=== PATIENT | male | born 1975 | race Caucasian/White ===

== ENCOUNTER 2016-02-19 10:20 | Emergency (ER) | payer BC ==
[2016-02-19 10:31] VITALS: BP 135/85
--- NOTE | 2016-02-19 10:31 | UC ---
Throat Pain/Nasal Abdulkadir HPI - HPI Summary HPI Summary: Sore throat for 6 days-fevers on/off - History of Current Complaint Chief Complaint: UCGeneralIllness Stated Complaint: THROAT PAIN Time Seen by Provider: 02/19/16 10:22 Hx Obtained From: Patient Onset/Duration: Sudden Onset, Lasting Days - 6, Still Present Severity: Moderate Pain Intensity: 5 Pain Scale Used: 0-10 Numeric Cough: None Associated Signs & Symptoms: Positive: Nasal Discharge, Fever - Allergies/Home Medications Allergies/Adverse Reactions: Allergies Allergy/AdvReac Type Severity Reaction Status Date / Time MARIJUANA Allergy See Comment Uncoded 02/19/16 10:29 Home Medications: Home Medications Throat [place] 02/19/16 [History] PMH/Surg Hx/FS Hx/Imm Hx Previously Healthy: Yes - Family History Known Family History: Positive: Cardiac Disease, Hypertension, Diabetes - Social History Occupation: Employed Full-time Lives: With Family Alcohol Use: Rare Substance Use Type: None Smoking Status (MU): Never Smoked Tobacco Review of Systems Constitutional: Fever, Chills, Fatigue Skin: Negative Eyes: Negative ENT: Sore Throat, Nasal Discharge Respiratory: Negative Cardiovascular: Negative Gastrointestinal: Negative Genitourinary: Negative Motor: Negative Neurovascular: Negative Musculoskeletal: Negative Neurological: Negative Psychological: Negative All Other Systems Reviewed And Are Negative: Yes Physical Exam Triage Information Reviewed: Yes Appearance: Well-Nourished, Ill-Appearing - mild, Pain Distress - mild Vital Signs Reviewed: Yes Eye Exam: Normal Eyes: Positive: Conjunctiva Clear ENT Exam: Normal ENT: Positive: Normal ENT inspection, Hearing grossly normal, Pharyngeal erythema, Nasal drainage, TMs normal. Negative: Nasal congestion, Trismus, Muffled/hoarse voice Dental Exam: Normal Neck: Positive: Supple - cervical nodes, Tenderness @, Enlarged Nodes @ - anterior cervical Respiratory Exam: Normal Respiratory: Positive: Chest non-tender, Lungs clear, Normal breath sounds, No respiratory distress, No accessory muscle use Cardiovascular Exam: Normal Cardiovascular: Positive: RRR, No Murmur, Pulses Normal, Brisk Capillary Refill Musculoskeletal Exam: Normal Musculoskeletal: Positive: Strength Intact, ROM Intact, No Edema Neurological Exam: Normal Neurological: Positive: Alert, Muscle Tone Normal Psychological Exam: Normal Skin Exam: Normal Throat Pain/Nasal Course/Dx - Course Assessment/Plan: Amoxicillin, increase fluids, otc pain relievers, follow with PCP re-check prn - Differential Dx/Diagnosis Differential Diagnosis/HQI/PQRI: Laryngitis, Peritonsillar Abscess, Pharyngitis , Tonsillitis Provider Diagnoses: Tonsillitis Discharge - Discharge Plan Condition: Stable Disposition: HOME Prescriptions: Amoxicillin CAP* 500 mg PO TID #30 cap Patient Education Materials: Acetaminophen (By mouth), Ibuprofen (By mouth), Tonsillitis (ED) Referrals: [facility] [[place]] - If Needed Dayne Peña MD [Medical Doctor] - If Needed
== END 2016-02-19 10:36 | disposition home or self-care (01) ==
LOC: UCEAST 10:20
DX: J03.90 Acute tonsillitis, unspecified (principal)
CPT/HCPCS: 99212; G0463

== ENCOUNTER 2017-03-18 03:06 | Observation (INO) | payer BC ==
[2017-03-18] MEDS ORDERED: Ondansetron INJ* 2 MG/ML VIAL IV ONE (03:55)
[2017-03-18] MEDS ORDERED: Morphine INJ* 4 MG/ML 1 ML CARPUJECT IV ONE (03:55)
[2017-03-18] MEDS ORDERED: NS 0.9% 1000 ML* 1,000 ML IV ONE (03:55)
[2017-03-18 04:32] LABS: ABS Basophils 0 10^3/ul (0-0.2); ABS Eosinophils 0 10^3/ul (0-0.6); ABS Lymphocytes 1.8 10^3/ul (1.0-4.8); ABS Monocytes 0.5 10^3/ul (0-0.8); ABS Neutrophils 13.5 10^3/ul (1.5-7.7); ABS Nucleated RBC 0 10^3/ul; Eosinophil % 0.1 % (0-6); Hematocrit 43 % (42-52); Hemoglobin 14.7 g/dl (14.0-18.0); Lymphocyte % 11.1 % (25-47); Mean Corpuscular HGB Conc 34 g/dl (31-36); Mean Corpuscular Hemoglobin 30 pg (27-31); Mean Corpuscular Volume 89 fL (80-94); Mean Platelet Volume 7 um3 (7.4-10.4); Nucleated Red Blood Cells % 0.1; Platelet Count 294 10^3/ul (150-450); Red Blood Count 4.81 10^6/ul (4.0-5.4); Red Cell Distribution Width 13 % (10.5-15); White Blood Count 15.9 10^3/ul (3.5-10.8)
[2017-03-18 04:48] LABS: EGFR Non-African American 82.3 (>60)
[2017-03-18 04:52] LABS: INR 0.93 (0.77-1.02)
[2017-03-18] MEDS ORDERED: Iohexol 300* (CONTRAST) 10 ML SDV IV ONE (06:19)
--- NOTE | 2017-03-18 06:45 | ED ---
Coby Baca Thomas, scribed for Milo Mckenzie on 03/18/17 at 0400 . Abdominal Pain/Male - HPI Summary HPI Summary: The patient is a 41 year old male presenting with mid and upper abdominal pain that began yesterday morning. He rates the pain 6/10. The patient additionally complains of nausea and vomiting. He denies diarrhea, chest pain, and shortness of breath. Past medical history includes IBS. - History of Current Complaint Chief Complaint: EDAbdPain Stated Complaint: ABD PAIN Time Seen by Provider: 03/18/17 03:45 Hx Obtained From: Patient Onset/Duration: Lasting Days - 1, Still Present Timing: Constant Severity Currently: Moderate Pain Intensity: 6 Pain Scale Used: 0-10 Numeric Location: Other - Mid, upper Aggravating Factor(s): Nothing Alleviating Factor(s): Nothing Associated Signs And Symptoms: Positive: Nausea, Vomiting. Negative: Diarrhea, Other - CP, SOB - Allergies/Home Medications Allergies/Adverse Reactions: Allergies Allergy/AdvReac Type Severity Reaction Status Date / Time MARIJUANA Allergy See Comment Uncoded 02/19/16 10:29 PMH/Surg Hx/FS Hx/Imm Hx Cardiovascular History: Denies: Hx Myocardial Infarction GI History: Reports: Hx Irritable Bowel - Surgical History Surgery Procedure, Year, and Place: R ARM. FATTY CYST REMOVED FROM BACK Infectious Disease History: No Infectious Disease History: Denies: Traveled Outside the [place] in Last 30 Days - Family History Known Family History: Positive: Cardiac Disease, Hypertension, Diabetes - Social History Alcohol Use: Rare Substance Use Type: Reports: None Smoking Status (MU): Never Smoked Tobacco Review of Systems Negative: Fever Negative: Chest Pain Negative: Shortness Of Breath Positive: Abdominal Pain, Vomiting, Nausea. Negative: Diarrhea All Other Systems Reviewed And Are Negative: Yes Physical Exam - Summary Physical Exam Summary: Appearance: Well appearing, no pain distress Skin: warm, dry, reflects adequate perfusion Head/face: normal Eyes: EOMI, SALOME ENT: normal Neck: supple, non-tender Respiratory: CTA, breath sounds present Cardiovascular: RRR, pulses symmetrical Abdomen: Soft. He is tender to his RUQ and umbilical area. Bowel: present Musculoskeletal: normal, strength/ROM intact Neuro: normal, sensory motor intact, A&Ox3 Triage Information Reviewed: Yes Vital Signs On Initial Exam: Initial Vitals Temp Pulse Resp BP Pulse Ox 97 F 75 16 155/101 97 03/18/17 03:09 03/18/17 03:09 03/18/17 03:09 03/18/17 03:09 03/18/17 03:09 Vital Signs Reviewed: Yes Diagnostics - Vital Signs Vital Signs Temp Pulse Resp BP Pulse Ox 03/18/17 03:09 97 F 75 16 155/101 97 - Laboratory Lab Results: Lab Results 03/18/17 03/18/17 03/18/17 Range/Units 04:17 04:17 04:17 WBC 15.9 H (3.5-10.8) 10^3/ul RBC 4.81 (4.0-5.4) 10^6/ul Hgb 14.7 (14.0-18.0) g/dl Hct 43 (42-52) % MCV 89 (80-94) fL MCH 30 (27-31) pg MCHC 34 (31-36) g/dl RDW 13 (10.5-15) % Plt Count 294 (150-450) 10^3/ul MPV 7 L (7.4-10.4) um3 Neut % (Auto) 85.3 H (38-83) % Lymph % (Auto) 11.1 L (25-47) % Edmonson % (Auto) 3.3 (1-9) % Eos % (Auto) 0.1 (0-6) % Baso % (Auto) 0.2 (0-2) % Absolute Neuts (auto) 13.5 H (1.5-7.7) 10^3/ul Absolute Lymphs (auto) 1.8 (1.0-4.8) 10^3/ul Absolute Monos (auto) 0.5 (0-0.8) 10^3/ul Absolute Eos (auto) 0 (0-0.6) 10^3/ul Absolute Basos (auto) 0 (0-0.2) 10^3/ul Absolute Nucleated RBC 0 10^3/ul Nucleated RBC % 0.1 INR (Anticoag Therapy) 0.93 (0.77-1.02) APTT 30.7 (26.0-36.3) seconds Sodium 133 (133-145) mmol/L Potassium 4.0 (3.5-5.0) mmol/L Chloride 104 (101-111) mmol/L Carbon Dioxide 19 L (22-32) mmol/L Anion Gap 10 (2-11) mmol/L BUN 23 (6-24) mg/dL Creatinine 1.00 (0.67-1.17) mg/dL Est GFR ( Amer) 105.9 (>60) Est GFR (Non-Af Amer) 82.3 (>60) BUN/Creatinine Ratio 23.0 H (8-20) Glucose 154 H (70-100) mg/dL Calcium 9.0 (8.6-10.3) mg/dL Total Bilirubin 0.70 (0.2-1.0) mg/dL AST 18 (13-39) U/L ALT 27 (7-52) U/L Alkaline Phosphatase 55 (34-104) U/L Troponin I 0.00 (<0.04) ng/mL Total Protein 7.7 (6.4-8.9) g/dL Albumin 4.4 (3.2-5.2) g/dL Globulin 3.3 (2-4) g/dL Albumin/Globulin Ratio 1.3 (1-3) Lipase 14 (11.0-82.0) U/L Result Diagrams: 03/18/17 04:17 03/18/17 04:17 Lab Statement: Any lab studies that have been ordered have been reviewed, and results considered in the medical decision making process. - CT CT Abd/Pel CT Interpretation Completed By: Radiologist - PENDING--SEE [facility] - EKG 04:11 Cardiac Rate: NL EKG Rhythm: Sinus Rhythm - at 69 BPM EKG Interpretation: No acute changes. Abdominal Pain Fem Course/Dx - Course Assessment/Plan: The patient is a 41 year old male presenting with mid and upper abdominal pain that began yesterday morning. In the ED course the patient was given IV fluids, morphine, and Zofran. Bloodwork and urinalysis were obtained. CT Abd/Pel is pending. EKG shows sinus rhythm. The patient is diagnosed with abdominal pain. The patient will be signed out to Dr. Gonzalez pending CT Abd/Pel. - Diagnoses Differential Diagnosis/HQI/PQRI: Appendicitis, Diverticulitis, Pancreatitis, Renal Colic, Urinary Tract Infection Provider Diagnoses: Abdominal pain Discharge - Discharge Plan Condition: Stable Disposition: OTHER Discharge Disposition Comment: Signed out to Dr. Gonzalez pending CT Abd/Pel Referrals: No Primary Care Phys,NOPCP [Primary Care Provider] - The documentation as recorded by the Coby de la cruz Thomas accurately reflects the service I personally performed and the decisions made by , Milo Mckenzie.
[2017-03-18 08:28] LABS: Urine Appearance Clear; Urine Blood Negative (Negative); Urine Color Yellow; Urine Ketones Negative (Negative); Urine Protein Negative (Negative); Urine Urobilinogen Negative (Negative)
--- NOTE | 2017-03-18 08:48 | RAD ---
CLINICAL HISTORY: Tender umbilicus, rule out appendicitis COMPARISON: None TECHNIQUE: Multiple contiguous axial CT scans were obtained of the abdomen and pelvis after the administration of intravenous contrast. Coronal and sagittal multiplanar reformations are submitted for review. Oral contrast was administered. Delayed images were obtained through the abdomen and pelvis. FINDINGS: LUNG BASES: There is minimal linear atelectasis of the right lung base. LIVER: The liver is diffusely low in attenuation compared to the spleen. There are no focal hepatic parenchymal masses. BILE DUCTS: There is no intrahepatic or extrahepatic biliary dilatation. GALLBLADDER: Multiple gallstones are noted. There is mild stranding of the pericholecystic fat is seen on axial image 39 and coronal image 58.. PANCREAS: The pancreas is normal, without mass or ductal dilatation. SPLEEN: Normal in size and appearance. UPPER GI TRACT: Evaluation of the gastrointestinal tract is limited by incomplete gastric distention. The upper GI tract is unremarkable. SMALL BOWEL AND MESENTERY: The small bowel is normal in contour, course, and caliber. There is no obstruction or dilatation. COLON: There are multiple diverticula of the sigmoid colon. There is a tubular, vermiform, hollow viscus that is blind-ending and originates from the cecum consistent with the appendix. This is dilated up to 1.1 cm in caliber. There is mild stranding of adjacent fat with a small amount of fluid along the mesoappendix. There is no loculated fluid collection to suggest abscess.. ADRENALS: Normal bilaterally. KIDNEYS: The kidneys are normal in shape, size, contour, and axis. There is no hydronephrosis or nephrolithiasis. BLADDER: The bladder is smooth in contour. PELVIC ORGANS: The prostate gland is normal. The seminal vesicles are symmetric. AORTA: The aorta is normal. IVC: Unremarkable LYMPH NODES: There is no lymphadenopathy by size criteria. ABDOMINAL WALL: There is a small fat-containing umbilical hernia. BONES AND SOFT TISSUES: There are mild diffuse degenerative changes. OTHER: None IMPRESSION: 1. DILATED APPENDIX WITH PERIAPPENDICEAL INFLAMMATORY CHANGE CONSISTENT WITH ACUTE APPENDICITIS IN THE CORRECT CLINICAL SETTING. THERE IS NO LOCULATED FLUID COLLECTION TO SUGGEST ABSCESS. 2. CHOLELITHIASIS WITH MILD PERICOLONIC INFLAMMATORY CHANGE. THIS IS OF UNCLEAR CLINICAL SIGNIFICANCE IN THE ABSENCE OF SYMPTOMS OF ACUTE CHOLECYSTITIS. 3. DIVERTICULOSIS. 4. FATTY INFILTRATION OF THE LIVER
[2017-03-18] MEDS ORDERED: Ondansetron INJ* 2 MG/ML VIAL IV PRN (09:02)
[2017-03-18] MEDS ORDERED: HYDROmorphone INJ* 1 MG/ML CARPUJECT SYRINGE IV PRN (09:02)
[2017-03-18] MEDS ORDERED: Famotidine IV* 10 MG/ML 2 ML (20 mg) IV SLOW PU ONE (09:06)
[2017-03-18] MEDS ORDERED: NS 0.9% 1000 ML* 1,000 ML IV SCH (09:15)
[2017-03-18] MEDS ORDERED: Piperacillin/Tazobactam VIAL*) 3.375 GM in NS 0.9% 100 ML* 100 ML IVPB SCH (10:00)
--- NOTE | 2017-03-18 10:01 | HP ---
AMENDED REPORT NOW INCLUDES COSIGNER DESIGNATION - ESIGNED BEFORE ADJUSTMENT DATE OF ADMISSION: 03/18/17 PATIENT OF: Dr. Neptali Alicea * (dictated by GERSON Pederson) CHIEF COMPLAINT: Upper abdominal pain. HISTORY OF PRESENT ILLNESS: Mr. 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 The patient notes that his pain started around midnight on Saturday after he had a greasy fatty dinner consisting of fried chicken. The pain started around his epigastric area and occasionally radiating to his right upper quadrant. He had some indigestion for which he took some Tums and Gas-X; however, it failed to alleviate his symptoms. During the entire day on Saturday, he had frequent bouts of nausea and vomiting with associated worsening epigastric pain. He reports two similar episodes in the past with similar symptoms that usually go away in 24 hours. He does have a history of acid reflux for which he takes antacids and over-the- counter Pepto-Bismol and Gas-X on a regular basis. He has never had an upper endoscopy in the past. The pain has gotten worse, for which he decided to come to the emergency room for further evaluation. He had laboratory workup that revealed leukocytosis with white count of 15,000. He also had a CT scan that revealed evidence of cholelithiasis and some inflammatory changes around the right colon. However, the main finding on the CT was noted to be inflammation of his appendix with signs consistent with acute appendicitis. Given the CT scan finding and his current abdominal pain, we were asked to see the patient by Dr. Gonzalez for further evaluation. PAST MEDICAL HISTORY: Significant for irritable bowel disease which was more of a default diagnosis for the patient. He reports a long-standing history of stomach indigestion with frequent use of antacids and [id number] antihistaminics. He denies any history of heart, liver, lung or kidney disease. PAST SURGICAL HISTORY: Significant for a lipoma excision from his back in 2009 , as well as open repair with internal fixation of right ulna and radius due to an open fracture after trauma from falling off a riding mower in July 2016. CURRENT MEDICATIONS: He does not take any medication on a regular basis. ALLERGIES: MARIJUANA. FAMILY HISTORY: He reports family history of diabetes and hypertension on both sides of his parents. However, he denies any family history of colorectal malignancies. SOCIAL HISTORY: Patient lives locally. 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 He is a non-smoker and drinks alcohol rarely. REVIEW OF SYSTEMS: See HPI; otherwise negative. He denies any headache, dizziness, blurred vision, or double vision. He reports occasional sore throat , usually takes Amoxicillin for it, but denies any cough, wheezing, shortness of breath, chest pain or palpitations. No back pain, dysuria, hematuria, or urinary frequency. He denies any fever, chills, night sweats or recent weight loss. He admits to epigastric pain, occasionally radiating to the right upper quadrant with associated nausea and vomiting, but denies any fever, chills, changes in bowel habits, or bleeding per rectum. PHYSICAL EXAMINATION GENERAL: He is a pleasant, obese, middle-aged gentleman who appears healthy and in no acute distress or discomfort at the time of admission. VITAL SIGNS: Revealed temperature 97.8, pulse 84, blood pressure 146/91, respirations 16, and O2 sat 96% on room air. HEENT: Head is normocephalic, atraumatic. PERRLA. Sclerae anicteric. EOMs intact. Oropharynx is pink, moist, with no exudate. NECK: Supple. Trachea midline. No cervical adenopathy, or thyromegaly. LUNGS: Clear to auscultation bilaterally. HEART: Regular rate and rhythm. Normal S1 and S2 without rubs, murmurs, or gallops. BACK: With normal curvature. No CVA tenderness. An old scar from prior lipoma excision was noted just left of the mid lower back. ABDOMEN: Soft, round, obese and non-distended. There is moderate epigastric and mild right upper quadrant tenderness noted on palpation. There is no guarding, rigidity or rebound tenderness. There is no hernia, mass or hepatosplenomegaly. Focused exam was given to right lower quadrant with no tenderness at McBurney's point. There is very mild positive Cumimns's sign. EXTREMITIES: Without cyanosis, clubbing or edema. NEUROLOGIC: Grossly intact. RECTAL EXAM: Deferred at this time. LABORATORY WORKUP: As mentioned above, white count of 16,000, hemoglobin 14.7, hematocrit 43, platelets 294. Chemistries showed sodium 133, potassium 4.0, chloride 104, CO2 19, BUN 23, and creatinine 1. Glucose 154. LFTs - amylase and lipase essentially within normal limits. ACCESSORY DIAGNOSTIC DATA: Official reading from his CT that was obtained and read by the nighthawk was done by the radiologist this morning, and revealed primarily a dilated appendix with periappendiceal inflammatory changes consistent with acute appendicitis. It also showed evidence of cholelithiasis with mild pericolonic inflammatory changes which might reveal an unclear significance. IMPRESSION: A 41-year-old gentleman with worsening upper abdominal pain associated with nausea and vomiting, leukocytosis, and CT scan finding consistent with cholelithiasis, right pericolonic inflammatory changes as well as signs consistent with acute appendicitis. PLAN: I went on and discussed with the patient the findings of his labs and CT. He presents with clinical picture typical for acute cholecystitis and his physical examination is consistent with this image as well. The CT scan also suggested that periappendiceal inflammatory changes and dilated appendix which is consistent with acute appendicitis. At this time, we discussed with him proceeding with surgical admission and likely to take him to the operating room later this morning. We discussed the possibility of laparoscopic cholecystectomy, possible laparoscopic appendectomy as well. The rationale, indication, risks and benefits of surgery were discussed with him today. Risks include but are not limited to infection, bleeding, or injury to adjacent structures. We will keep him NPO for now and cover him prophylactically with antibiotic and GI prophylaxis with Pepcid, and likely to be taken to the OR later today for surgery. I discussed the case with Dr. Alicea who will contact the radiologist for further review of his CT scan, and we will follow him up accordingly. GERSON PEDERSON [id number]/[facility] #: [id number] ALBERT
--- NOTE | 2017-03-18 10:47 | ED ---
Poncho Baca Angela, scribed for Balta Gonzalez MD on 03/18/17 at 0715 . Progress - Progress Note Progress Note: This pt was signed out by Dr. Mckenzie, pending disposition, awaiting CT abdomen/ pelvis. Pt is a 41 y/o male [facility] [place] mid and upper abdominal pain that began yesterday morning. PMHx: IBS. Physical Exam: VITAL SIGNS: Reviewed. GENERAL: Patient is an obese male who is lying comfortable in the stretcher. Patient is not in any acute respiratory distress. HEAD AND FACE: Normocephalic and atraumatic. EYES: PERRLA, EOMI x 2, No injected conjunctiva. EARS: Hearing grossly intact. Ear canals and tympanic membranes are WNL. MOUTH: Oropharynx within normal limits. NECK: Supple, trachea is midline, no adenopathy, no JVD. CHEST: Symmetric, no tenderness at palpation LUNGS: Clear to auscultation bilaterally. No wheezing or crackles. CVS: RRR, S1 and S2 present, no murmurs or gallops appreciated. ABDOMEN: Soft. RUQ tenderness. No RLQ tenderness. No signs of distention. Positive bowel sounds. No rebound no guarding, and no masses palpated. No abdominal bruit or pulsations. EXTREMITIES: FROM in all major joints, no edema, no cyanosis or clubbing. NEURO: Alert and oriented x 3. No acute neurological deficits. Speech is normal. SKIN: Dry and warm Pt will be admitted to [facility] [place] by Dr. Nathan, in stable condition, with diagnosis of acute cholecystitis. Disposition: Admit to [facility] [place] Condition: Stable - Results/Orders Results/Orders: CT Abdomen/Pelvis, as read by radiologist: IMPRESSION: 1. Dilated appendix with periappendiceal inflammatory change consistent with acute appendicitis in the correct clinical setting. There is no loculated fluid collection to suggest abscess. 2. Cholelithiasis with mild pericolonic inflammatory change. This is of unclear clinical significance in the abscence of symptoms of acute cholecystitis. 3. Diverticulosis. 4. Fatty infiltration of the liver. Dr. Gonzalez has reviewed this radiology report. Re-Evaluation - Re-Evaluation First Eval Re-Evaluation Time: 07:43 Comment: Pt reports his pain is located in the mid abdomen. Course/Dx - Course Course Of Treatment: Pt was signed out by Dr. Mckenzie, to follow up on the CT of the abdomen/pelvis. Abdomen/Pelvis CT shows 1. Dilated appendix with periappendiceal inflammatory change consistent with acute appendicitis in the correct clinical setting. There is no loculated fluid collection to suggest abscess. 2. Cholelithiasis with mild pericolonic inflammatory change. This is of unclear clinical significance in the abscence of symptoms of acute cholecystitis. 3. Diverticulosis. 4. Fatty infiltration of the liver. I discussed the case with Dr. Nathan, surgeon, who accepted the pt for admission. Pt has an acute cholecystitis. Pt is comfortable, he is tolerating fluids and is hemodynamically stable. - Diagnoses Provider Diagnoses: Acute cholecystitis - Provider Notifications Discussed Care Of Patient With: Teddy Nathan Time Discussed With Above Provider: 07:57 Instructed by Provider To: Other - I discussed pt care with Dr. Nathan, surgeon, who will admit the pt to surgery. The documentation as recorded by the Poncho de la cruz Angela accurately reflects the service I personally performed and the decisions made by me, Balta Gonzalez MD.
[2017-03-18] MEDS ORDERED: ZOSYN 3.375 GM x ONE DOSE over 30 miuntes IVPB ×2 (11:00)
--- NOTE | 2017-03-18 11:31 | PN ---
Progress Note - Progress Note Date of Service: 03/18/17 SOAP: Subjective: Patient seen and examined this morning and I discussed his care with GERSON Schulz He presented to the ER with almost 36 hours of upper abdominal pain mainly in the midline, associated nausea but no vomiting and no significant lower abdominal pain. He had no fever or diarrhea and has been somewhat anorexic. He gives a history of at least 2 episodes of epigastric pain that would wake him up in the middle of the night and last for several hours but he did not seek medical care. Objective: Temp Pulse Resp BP Pulse Ox 98.8 F 82 24 166/95 98 03/18/17 11:15 03/18/17 11:15 03/18/17 11:15 03/18/17 11:15 03/18/17 11:15 PEX: Comfortable Abd is soft and non-distended. Bowel sounds are present. There are no prior incisions or hernias. He has tenderness in the epigastrum and right upper quadrant without mass or peritoneal irritation. There is some very mild pain in the right lower quadrant without rebound, guarding or peritoneal signs. Laboratory Results - last 24 hr 03/18/17 03/18/17 03/18/17 04:17 04:17 04:17 WBC 15.9 H RBC 4.81 Hgb 14.7 Hct 43 MCV 89 MCH 30 MCHC 34 RDW 13 Plt Count 294 MPV 7 L Neut % (Auto) 85.3 H Lymph % (Auto) 11.1 L Maverick % (Auto) 3.3 Eos % (Auto) 0.1 Baso % (Auto) 0.2 Absolute Neuts (auto) 13.5 H Absolute Lymphs (auto) 1.8 Absolute Monos (auto) 0.5 Absolute Eos (auto) 0 Absolute Basos (auto) 0 Absolute Nucleated RBC 0 Nucleated RBC % 0.1 INR (Anticoag Therapy) 0.93 APTT 30.7 Sodium 133 Potassium 4.0 Chloride 104 Carbon Dioxide 19 L Anion Gap 10 BUN 23 Creatinine 1.00 Est GFR ( Amer) 105.9 Est GFR (Non-Af Amer) 82.3 BUN/Creatinine Ratio 23.0 H Glucose 154 H Calcium 9.0 Total Bilirubin 0.70 AST 18 ALT 27 Alkaline Phosphatase 55 Troponin I 0.00 Total Protein 7.7 Albumin 4.4 Globulin 3.3 Albumin/Globulin Ratio 1.3 Lipase 14 Urine Color Urine Appearance Urine pH Ur Specific Whitman Urine Protein Urine Ketones Urine Blood Urine Nitrate Urine Bilirubin Urine Urobilinogen Ur Leukocyte Esterase Urine Glucose 03/18/17 08:00 WBC RBC Hgb Hct MCV MCH MCHC RDW Plt Count MPV Neut % (Auto) Lymph % (Auto) Maverick % (Auto) Eos % (Auto) Baso % (Auto) Absolute Neuts (auto) Absolute Lymphs (auto) Absolute Monos (auto) Absolute Eos (auto) Absolute Basos (auto) Absolute Nucleated RBC Nucleated RBC % INR (Anticoag Therapy) APTT Sodium Potassium Chloride Carbon Dioxide Anion Gap BUN Creatinine Est GFR ( Amer) Est GFR (Non-Af Amer) BUN/Creatinine Ratio Glucose Calcium Total Bilirubin AST ALT Alkaline Phosphatase Troponin I Total Protein Albumin Globulin Albumin/Globulin Ratio Lipase Urine Color Yellow Urine Appearance Clear Urine pH 5.0 Ur Specific Whitman 1.020 Urine Protein Negative Urine Ketones Negative Urine Blood Negative Urine Nitrate Negative Urine Bilirubin Negative Urine Urobilinogen Negative Ur Leukocyte Esterase Negative Urine Glucose Negative CT reviewed with radiology--gallstones are present with some apparent surrounding inflammation but no significant fluid. The appendix appears to be dilated and slightly thick walled and there is some periappendiceal inflammation. US of the GB shows--GB wall thickening with stones and a small amount of fluid surrounding the GB, consistent with acute calculous cholecystitis. Assessment: RUQ abdominal pain Leukocytosis CT and US with gallstones and findings consistent with acute cholecystitis-- also noted on CT is concern for possible appendicitis. Plan: I believe clinically and with the above workup that he has acute cholecystitis and I recommend that he undergo a laparoscopic cholecystectomy. I think that the possibility of having both appendicitis and cholecystitis simultaneously is quite unlikely but we will be able to visualize the appendix at the time of surgery and if there is concern for appendicitis this can also be removed. I discussed all of this with him and agrees to proceed in this manner. I reviewed the procedure of lap choly and lap appendectomy with him in detail and the risks of, but not limited to, of bleeding, infection, abscess, open procedure, injury to peritoneal and retroperitoneal organs, common bile duct injury requiring further reconstruction, risks of anesthesia, blood clot and pulmonary embolism were all discussed. PLAN: Laparoscopic cholecystectomy, possible laparoscopic appendectomy today.
--- NOTE | 2017-03-18 11:35 | RAD ---
INDICATION: Cholelithiasis COMPARISON: CT scan March 18, 2017 TECHNIQUE: Longitudinal and transverse scans of the right upper quadrant were obtained. Doppler interrogation of the hepatic and portal venous system was performed. FINDINGS: Liver: There is hepatomegaly with hepatic steatosis. There are no masses . The liver measures 22.8 cm in cephalocaudal dimension. Vessels: There is normal hepatic and portal venous flow. Bile ducts: There is no evidence of intrahepatic or extrahepatic ductal dilatation. The common duct measures 0.5 cm. Gallbladder: There is cholelithiasis. There is thickened gallbladder wall with a small amount of pericholecystic fluid. The sonographic findings are suggestive of acute cholecystitis although the patient was not tender over the gallbladder during the scan. Pancreas: The visualized pancreas appears normal Right kidney: The right kidney is normal in size and echogenicity. There are no masses or calculi. There is no evidence of hydronephrosis. The right kidney measures 12.8 x 6.8 x 5.8 cm. IVC and aorta: The aorta and superior vena cava appear normal. Fluid: There is no ascites. Other: None. IMPRESSION: 1. Hepatomegaly with hepatic steatosis 2. Sonographic findings suggest acute cholecystitis (see above). This must be correlated with the clinical presentation/examination
[2017-03-18] MEDS ORDERED: Sodium Citrate/Citric Acid* 15 ML UDC PO ONE (12:02)
[2017-03-18] MEDS ORDERED: Bupivacaine 0.25% SDV* 30 ML ONE ×2 (13:05→17:06)
[2017-03-18] MEDS ORDERED: Famotidine IV* 10 MG/ML 2 ML (20 mg) ONE (13:28)
[2017-03-18] MEDS ORDERED: Sodium Citrate/Citric Acid* 15 ML UDC ONE (13:28)
[2017-03-18] MEDS ORDERED: ceFAZolin 2 GM PREMIX (*) 2 GM/50 ML BAG IVPB ONE (13:44)
[2017-03-18] MEDS ORDERED: Propofol* 10 MG/ML 20 ML BTL IV PUSH ONE ×2 (14:31→15:05)
[2017-03-18] MEDS ORDERED: Rocuronium* 10 MG/ML VIAL ONE (14:31)
[2017-03-18] MEDS ORDERED: Midazolam* 1 MG/ML 2 ML VIAL (2 MG) ONE (14:32)
[2017-03-18] MEDS ORDERED: fentaNYL* 50 MCG/ML 2 ML VIAL (100 MCG VIAL) ONE ×2 (14:32→15:36)
[2017-03-18] MEDS ORDERED: Piperacillin/Tazobactam 13.5 GM IV 24 hour continuous infusion IVPB SCH ×2 (15:00)
[2017-03-18] MEDS ORDERED: ceFAZolin 1 GM in Dextrose (*) 1 GM/50 ML BAG IVPB ONE (15:06)
[2017-03-18] MEDS ORDERED: Labetalol IV* 5 MG/ML 20 ML VIAL ONE (15:23)
[2017-03-18] MEDS ORDERED: Cisatracurium* 2 MG/ML MDV 5 ML ONE (15:29)
[2017-03-18] MEDS ORDERED: Naloxone* 0.4 MG/ML 1 ML VIAL IV PRN (16:12)
[2017-03-18] MEDS ORDERED: fentaNYL* 50 MCG/ML 2 ML VIAL (100 MCG VIAL) IV PRN (16:12)
[2017-03-18] MEDS ORDERED: Ketorolac INJ* 30 MG/ML 1 ML VIAL ONE (16:14)
[2017-03-18] MEDS ORDERED: Neostigmine Methylsulfate* 2 MG/2 ML SYRINGE ONE (16:15)
[2017-03-18] MEDS ORDERED: Glycopyrrolate IV* 0.2 MG/ML 1 ML VIAL ONE (16:15)
--- NOTE | 2017-03-18 17:33 | OP ---
Operative Report - Blank - Operative Report Date of Operation: 03/18/17 Note: Preop Dx: acute cholecystitis with abnormal appearance of appendix by CT Postop Dx: same, plus appendicitis Procedure: laparoscopic cholecystectomy and appendectomy Anesthesia: GET Surgeon: Nixon Asst: GERSON Blanco Fluids: 1000 ml RL EBL: 50 ml Specimen: gallbladder and appendix Drains: none Findings: dictated
[2017-03-18] MEDS ORDERED: oxyCODONE/Acetamin 5/325 MG* TAB PO PRN ×2 (17:35)
[2017-03-18] MEDS ORDERED: Acetaminophen TAB* 325 MG PO PRN (17:35)
[2017-03-18] MEDS ORDERED: Ketorolac INJ* 30 MG/ML 1 ML VIAL IV PUSH PRN (17:36)
[2017-03-18] MEDS ORDERED: TAZOBACTAM IVPB SCH (19:30)
[2017-03-18] MEDS ORDERED: NS 0.9% IVPB SCH (19:30)
[2017-03-18] MEDS ORDERED: PIPERACILLIN IVPB SCH (19:30)
[2017-03-19 07:46] LABS: ABS Basophils 0.1 10^3/ul (0-0.2); ABS Eosinophils 0.2 10^3/ul (0-0.6); ABS Lymphocytes 2.9 10^3/ul (1.0-4.8); ABS Monocytes 0.8 10^3/ul (0-0.8); ABS Neutrophils 7.5 10^3/ul (1.5-7.7); ABS Nucleated RBC 0 10^3/ul; Eosinophil % 1.7 % (0-6); Hematocrit 39 % (42-52); Hemoglobin 13.5 g/dl (14.0-18.0); Mean Corpuscular HGB Conc 34 g/dl (31-36); Mean Corpuscular Hemoglobin 30 pg (27-31); Mean Corpuscular Volume 89 fL (80-94); Mean Platelet Volume 7 um3 (7.4-10.4); Nucleated Red Blood Cells % 0; Platelet Count 244 10^3/ul (150-450); Red Blood Count 4.45 10^6/ul (4.0-5.4); Red Cell Distribution Width 13 % (10.5-15); White Blood Count 11.4 10^3/ul (3.5-10.8)
[2017-03-19 08:05] VITALS: BP 122/75
--- NOTE | 2017-03-19 10:45 | PN ---
Progress Note - Progress Note Date of Service: 03/19/17 Note: S: POD #1. Patient seen earlier this a.m. by myself and subsequently by Dr. Alicea. Pain minimal. Chelly po. O: Vital Signs - 8 hr 03/19/17 03/19/17 03/19/17 04:05 07:30 08:00 Temperature 99.3 F 99.6 F Pulse Rate 95 88 Respiratory 18 17 17 Rate Blood Pressure 105/61 122/75 (mmHg) O2 Sat by Pulse 94 93 Oximetry Intake and Output Last 24 Hours 03/17/17 03/18/17 03/19/17 03/20/17 06:59 06:59 06:59 06:59 Intake Total 1000 3122 316 Output Total 2475 Balance 1000 647 316 Weight 295 lb 295 lb Intake: IV Fluids 1000 1247 316 3GM CEFAZOLIN 100 ABX - ZOSYN 316 lr 1000 IVPB 55 ABX - ZOSYN 55 Oral 1820 Output: Urine 2425 Estimated Blood Loss 50 Other: # Bowel Movements 0 Heart: reg Lungs: clear Abd: +BS; lap incisions ok (2/4 w/ small area of erythema); soft; incisional tenderness only A/P: s/p lap krishna w/ appy, doing well; OK for d/c home today; instructions reviewed
--- NOTE | 2017-03-19 11:16 | DS ---
CC: Dr. Dayne Peña * DATE OF ADMISSION: 03/18/2017. DATE OF DISCHARGE: 03/19/2017. ATTENDING SURGEON: Dr. Neptali Alicea * (GERSON Priest dictating). PRIMARY CARE PHYSICIAN: Dr. Dayne Peña, [place], [place]. HOSPITAL COURSE: Please refer to the admission history and physical for admission details. Briefly, the patient presented with right upper quadrant pain with CT scan consistent with acute calculus cholecystitis. An additional finding on the CT included an abnormal appendix (see separate report). The patient was taken the operating room the afternoon of 03/18/2017, at which time laparoscopic cholecystectomy was performed for grossly apparent acute cholecystitis. The appendix did indeed appear abnormal and appendectomy was also performed. The patient has had an uneventful postoperative course and as of the morning of discharge was experiencing minimal pain and was tolerating oral diet. PHYSICAL EXAMINATION: Vital Signs: Temperature 99.6, blood pressure 122/75, pulse 88, respirations 17, room air saturation 93 percent. Heart: Regular rate and rhythm. Lungs: Clear to auscultation. Abdomen: Laparoscopic incision sites are clean with small amounts of dried drainage, no active drainage. Small area of erythema around two of the four incisions. No evidence of infection. Abdomen was soft with incisional tenderness only consistent with postoperative state. IMPRESSION: Status post laparoscopic cholecystectomy for acute calculus cholecystitis; laparoscopic appendectomy for abnormal appearing appendix. PLAN: Patient will be discharged home today. No further antibiotics were felt to be indicated. The patient was seen by Dr. Alicea in addition to myself. He has a follow-up in our office on 03/26/2017. GERSON PRIEST [id number]/[facility] #: [id number] MTDD
--- NOTE | 2017-03-19 12:06 | OP ---
[facility] * DATE OF OPERATION: 03/18/17 - ROOM #339 DATE OF : 75 SURGEON: Neptali Alicea MD STUDENT FINANCE SPECIALIST: GERSON Priest ANESTHESIOLOGIST: Deangelo Marquez DO ANESTHESIA: General with local. PRE-OP DIAGNOSES: 1. Acute calculous cholecystitis. 2. Abnormal appearance of appendix on CT scan. POST-OP DIAGNOSES: 1. Acute calculous cholecystitis. 2. Dilated distal appendix with thickened appearing wall. OPERATIVE PROCEDURE: 1. Laparoscopic cholecystectomy. 2. Laparoscopic appendectomy. INDICATIONS: Mr. Shamar Castro is a 41-year-old gentleman presenting to the emergency room with almost 36 hours of epigastric and right upper quadrant abdominal pain. He was noted to have leukocytosis, tenderness in the right upper quadrant. He underwent a CAT of his abdomen and pelvis in the emergency room, which showed gallstones with mildly thickened gallbladder wall with some pericholecystic fluid. This was also confirmed with an ultrasound and felt to be acute calculous cholecystitis. However, on the CT scan findings, there was noted to be a dilated and thickened appendix with some periappendiceal inflammation mainly in its distal half and there was concern for a possible acute appendicitis with dilated appendix. He had really no tenderness in the right lower quadrant and it was felt unlikely he had both acute calculous cholecystitis as well as appendicitis. He is now being taken to the operating room for laparoscopic cholecystectomy with laparoscopic evaluation of his appendix. The procedure was discussed with the patient. The risks but not limited to bleeding, infection, abdominal abscess formation, open procedure, injury to peritoneal and retroperitoneal structures, possibility of bile duct injury requiring reconstruction, possible appendectomy as per above. Risks of general anesthesia and deep vein thrombosis /pulmonary embolism were all explained as well. ESTIMATED BLOOD LOSS: Minimal. IV FLUIDS: 1 L of crystalloid. WOUND CLASSIFICATION: III. DRAINS: None. COMPLICATIONS: None. SPECIMENS: 1. Gallbladder with gallstones. 2. Appendix, sent separately. DESCRIPTION OF PROCEDURE: Written informed consent was obtained, the abdomen was marked with indelible ink, and preoperative antibiotics were administered. The patient was taken to the operating room, placed in the supine position. Sequential compression devices and warming blanket were applied. General anesthesia was administered. The abdomen was prepped and draped in the usual sterile fashion. Time-out verification was completed. Initially, a small transverse incision was made just above the umbilicus and the peritoneal cavity was entered under direct vision. A 12-mm blunt port was inserted and the abdomen was insufflated to 15 mmHg. Under direct vision, an 11-mm epigastric port was placed and two 5-mm ports were placed in the right side of the abdominal wall. The gallbladder was identified. It was markedly distended, thick walled, and yellowish grayish in color all consistent with acute calculous cholecystitis. The liver appeared to be unremarkable. We were unable to grasp the gallbladder due to its distention and we used a large 18-gauge needle to puncture the gallbladder and drain almost 100 cc of thick dark green bile allowing us to grasp it and elevate it up over the liver bed. With care, the inflamed and edematous tissue along the mid to inferior portion of the gallbladder was taken down using cautery and blunt dissection to identify the infundibulum of the gallbladder along the medial and lateral aspects of the gallbladder itself. With care, once again, the cystic duct was identified I used the critical view technique to take a significant portion in the inferior part of the gallbladder off the liver bed to identify the cystic artery as well. Once I was assured there was only these two and only these two structures entering the gallbladder , and the cystic duct also appeared to be of normal caliber, they were doubly clipped and divided. It should be noted that there was a significant amount of inflammation and edema in the area all consistent with cholecystitis. The gallbladder was then removed completely from the liver bed using cautery and we have placed an EndoCatch bag and placed just above the liver. The liver bed was irrigated thoroughly with saline until clear and hemostasis was assured. In light of findings on the CT scan, we did visualize and examined the appendix which was really in the right middle of the abdomen. We were able to grasp this and elevated up in to view and here it was obvious that distal half to two- thirds of the appendix was markedly dilated, indurated, and had some small globules of gelatinous material somewhat adherent to it that were only several millimeters in size, however. This did not appear to be a typical acute appendicitis with suppurative inflammation, however, but with its appearance I felt that an appendectomy was indicated. A fifth port, which was a 5-mm port, was placed in the suprapubic position and the appendix was delivered up in to view. The mesoappendix was divided sequentially with LigaSure device down to the base. The cecum was unremarkable and we used a jennings load of a 30-mm stapler to divide the appendix in its base and this was placed in an EndoCatch bag and brought up through the umbilical incision. The staple line appeared to be intact with good hemostasis. Once this was completed, we removed the gallbladder from the umbilical site. This was somewhat challenging and we opened the gallbladder and removed several large stones and a significant amount of bile, but I did not have to make the fascial defect larger. All the ports removed under direct vision. There was no abdominal wall bleeding. The umbilical fascia was closed with interrupted 0 Polysorb suture. The skin at all incisions was closed with subcuticular 4-0 Vicryl suture. Steri -Strips were applied. The patient tolerated the procedure well, was taken to the recovery room in stable condition. [id number]/[facility] #: [id number] MTDTemitope
== END 2017-03-19 11:05 | disposition home or self-care (01) ==
LOC: ED 03:06 → SSU 09:02
PROVIDERS: ADMIT Surgery; ATTEND Surgery
PROC: 0FT44ZZ Resection of Gallbladder, Percutaneous Endoscopic Approach (ICD-10-PCS; 2017-03-18)
PROC: 0FT44ZZ Resection of Gallbladder, Percutaneous Endoscopic Approach (ICD-10-PCS; principal; 2017-03-18 10:30)
DX: K81.0 Acute cholecystitis (principal); K37 Unspecified appendicitis; R10.9 Unspecified abdominal pain; R93.8 Abnormal findings on diagnostic imaging of other specified body structures
CPT/HCPCS: 36415; 74177; 76705; 80048; 80053; 80076; 81003; 83690; 84484; 85025; 85610; 85730; 88304; 93005; 99284; A9270-GY; G0378; J0690; J1170; J1885; J2250; J2270; J2405; J2543; J2704; J3010; Q9967

== ENCOUNTER 2017-10-19 10:50 | Emergency (ER) | payer BC ==
[2017-10-19 11:00] VITALS: BP 136/89
--- NOTE | 2017-10-19 11:50 | UC ---
FLU HPI - HPI Summary HPI Summary: 42 y/o male presents to the urgent care c/o fever, body aches, dry cough mild PARADA for the past 4 days. Pt has taken Robitussin PO to alleviate symptoms. Pt reports fever of 102F yesterday. Pt denies sore throat, nasal congestion, rash, neck pain, abdominal pain, SOB, chest pain, N/V/D, Hx of tick bite or recent travel. - History of Current Complaint Chief Complaint: UCGU Stated Complaint: FLU LIKE SYMPTOMS Time Seen by Provider: 10/19/17 11:40 Hx Obtained From: Patient Onset/Duration: Gradual Onset, Lasting Days - 4 days, Still Present Severity Currently: Mild Severity Initially: Mild Pain Intensity: 2 Pain Scale Used: 0-10 Numeric Associated Signs & Symptoms: Positive: Fever, Myalgia, Nasal Congestion, Headache - Risk Factors Influenza Risk Factors: Negative - Allergy/Home Medications Allergies/Adverse Reactions: Allergies Allergy/AdvReac Type Severity Reaction Status Date / Time MARIJUANA Allergy See Comment Uncoded 10/19/17 11:01 Home Medications: Home Medications NK [No Home Medications Reported] 10/19/17 [History Confirmed 10/19/17] PMH/Surg Hx/FS Hx/Imm Hx Previously Healthy: Yes - Pt denies PMHX - Surgical History Surgical History: Yes Surgery Procedure, Year, and Place: R ARM. FATTY CYST REMOVED FROM BACK appy in mar 21 - Family History Known Family History: Positive: Cardiac Disease, Hypertension, Diabetes - Social History Occupation: Employed Full-time Lives: With Family Alcohol Use: Rare Substance Use Type: None Smoking Status (MU): Never Smoked Tobacco - Immunization History Most Recent Influenza Vaccination: never Most Recent Pneumonia Vaccination: never Review of Systems Constitutional: Fever, Other - body aches Skin: Negative Eyes: Negative ENT: Nasal Discharge Respiratory: Cough - dry Cardiovascular: Negative Gastrointestinal: Negative Genitourinary: Negative Motor: Negative Neurovascular: Negative Musculoskeletal: Myalgia Neurological: Headache Psychological: Negative Is Patient Immunocompromised?: No All Other Systems Reviewed And Are Negative: Yes Physical Exam - Summary Physical Exam Summary: VITAL SIGNS: Reviewed. GENERAL: Patient is a well developed and nourished male who is sitting comfortable in the examining table. Patient is not in any acute respiratory distress. HEAD AND FACE: No signs of trauma. No ecchymosis, hematomas or skull depressions. No sinus tenderness. EYES: PERRLA, EOMI x 2, No injected conjunctiva, no nystagmus. No photophobia. EARS: Hearing grossly intact. Ear canals and tympanic membranes are within normal limits. Nose: edematous and erythematous nasal mucosa w/ clear nasal discharge. MOUTH: Positive no erythema, no tonsillar enlargement. Uvula in midline. NECK: Supple, trachea is midline, Positive anterior cervical lymphadenopathy, no JVD, no carotid bruit, no c-spine tenderness, neck with full ROM. No meningeal signs, no Kernig's or brudzinskis signs. CHEST: Symmetric, no tenderness at palpation LUNGS: Clear to auscultation bilaterally. No wheezing or crackles. CVS: Regular rate and rhythm, S1 and S2 present, no murmurs or gallops appreciated. ABDOMEN: Soft, non-tender. No signs of distention. No rebound no guarding, and no masses palpated. Bowel sounds are normal. EXTREMITIES: FROM in all major joints, no edema, no cyanosis or clubbing. NEURO: Alert and oriented x 3. No acute neurological deficits. Speech is normal and follows commands. SKIN: Dry and warm Triage Information Reviewed: Yes Vital Signs: Initial Vital Signs Temp 98 F 10/19/17 10:57 Pulse 87 10/19/17 10:57 Resp 16 10/19/17 10:57 BP 136/89 10/19/17 10:57 Pulse Ox 98 10/19/17 10:57 Flu Course/Dx - Course Course Of Treatment: 42 y/o male presents to the urgent care c/o fever, body aches, dry cough mild PARADA for the past 4 days. Pt has taken Robitussin PO to alleviate symptoms. Pt reports fever of 102F yesterday. Pt denies sore throat, nasal congestion, rash, neck pain, abdominal pain, SOB, chest pain, N/V/D, Hx of tick bite or recent travel. Hx obtained. Pt w/ a URI on examiantion. Influenza A&B ordered: result: negative. Pt Rx ibuprofen PO to alleviates symptoms. Advised on hand washing. Pt advised to rest, increase fluid intake, eat well and avoid strenuous exercise. If symptoms do not improve or worsen advised to return to the urgent care or f/u with his PCP for further evaluation and treatment. Pt understood and agreed with plan of care. - Differential Dx/Diagnosis Differential Diagnosis/HQI/PQRI: Bronchitis, Influenza, Pneumonia, Upper Respiratory Infection, Other - lyme Provider Diagnoses: 1- Upper respiratory infection Discharge - Sign-Out/Discharge Documenting (check all that apply): Patient Departure - D/C home All imaging exams completed and their final reports reviewed: No Studies - Discharge Plan Condition: Stable Disposition: HOME Patient Education Materials: Upper Respiratory Infection (ED) Referrals: Neptali Alicea MD [Primary Care Provider] - 3 Days Additional Instructions: 1-Please continue taking Tylenol / Ibuprofen PO q6-8hrs prn as instructed after meals to alleviate fever. Increase fluid intake, eat well, rest and avoid strenuous exercise. Please continue taking Mucinex Po to alleviate symptoms. 2-If symptoms do not improve or worsen please return to the urgent care or f/u with your PCP in 3 days for further evaluation and treatment. - Billing Disposition and Condition Condition: STABLE Disposition: Home
--- NOTE | 2017-10-21 07:10 | UC ---
Discharge - Sign-Out/Discharge Documenting (check all that apply): Post-Discharge Follow Up All imaging exams completed and their final reports reviewed: No Studies - Discharge Plan Condition: Stable Disposition: HOME Patient Education Materials: Upper Respiratory Infection (ED) Referrals: Neptali Alicea MD [Primary Care Provider] - 3 Days Additional Instructions: 1-Please continue taking Tylenol / Ibuprofen PO q6-8hrs prn as instructed after meals to alleviate fever. Increase fluid intake, eat well, rest and avoid strenuous exercise. Please continue taking Mucinex Po to alleviate symptoms. 2-If symptoms do not improve or worsen please return to the urgent care or f/u with your PCP in 3 days for further evaluation and treatment. - Billing Disposition and Condition Condition: STABLE Disposition: Home
== END 2017-10-19 12:04 | disposition home or self-care (01) ==
LOC: UCEAST 10:50
DX: J06.9 Acute upper respiratory infection, unspecified (principal); R51 Headache; Z91.09 Other allergy status, other than to drugs and biological substances; Z86.59 Personal history of other mental and behavioral disorders
CPT/HCPCS: 99211; G0463